=== PATIENT | female | born 1985 ===

== ENCOUNTER 2016-08-02 13:19 | Emergency (ER) | payer MEDICAID ==
[2016-08-02 13:32] VITALS: BP 127/74; PULSE 88; RESP 18; TEMP 98.4; O2SAT 100
--- NOTE | 2016-08-02 13:54 | ED PDOC ---
HPI: CCC, URI, Sore Throat Time Seen by Provider: 08/02/16 13:32 Chief Complaint (Nursing): Cough, Cold, Congestion Chief Complaint (Provider): seasonal allergies History Per: Patient History/Exam Limitations: no limitations Have you had recent travel within the past 21 days to any of the following countries: [place], [place], [place] or [place]?: No Past Medical History Vital Signs: Last Vital Signs Temp 98.4 F 08/02/16 13:29 Pulse 88 08/02/16 13:29 Resp 18 08/02/16 13:29 BP 127/74 08/02/16 13:29 Pulse Ox 100 08/02/16 13:54 - Medical History PMH: Pulmonary Embolism (2013) - Surgical History Surgical History: - Allergies Allergies/Adverse Reactions: Allergies Allergy/AdvReac Type Severity Reaction Status Date / Time No Known Allergies Allergy Verified 04/11/16 16:39 - ECG O2 Sat by Pulse Oximetry: 100
--- NOTE | 2016-08-02 14:46 | ED PDOC ---
HPI: General Adult Time Seen by Provider: 08/02/16 13:32 Chief Complaint (Nursing): Cough, Cold, Congestion Chief Complaint (Provider): seasonal allergies History Per: Patient History/Exam Limitations: no limitations Onset/Duration Of Symptoms: Days (x 2 weeks) Have you had recent travel within the past 21 days to any of the following countries: [place], [place], [place] or [place]?: No Additional Complaint(s): Ewelina Cloud is a 30 year old female, with no previous medical history, who presents to the ED with complaints of symptoms consistent with her seasonal allergies ongoing for 2 weeks. Patient reports symptoms include runny nose, itchy eyes and sore throat. Patient denies any fever or chills. Patient reports to taking claritin to alleviate symptoms with minimal relief. She reports being unable to see her PMD because there were no available appointments. PMD: none provided Past Medical History Reviewed: Historical Data, Nursing Documentation, Vital Signs Vital Signs: Last Vital Signs Temp 98.4 F 08/02/16 13:29 Pulse 88 08/02/16 13:29 Resp 18 08/02/16 13:29 BP 127/74 08/02/16 13:29 Pulse Ox 100 08/02/16 14:55 - Medical History PMH: Pulmonary Embolism (2013) - Surgical History Surgical History: - Family History Family History: States: Unknown Family Hx - Home Medications Home Medications: Ambulatory Orders Medication Instructions Recorded Fexofenadine/Pseudoephedrine 1 each PO BID PRN #12 tab.er.12h 08/02/16 [Vida-D 12 Hour Tablet] - Allergies Allergies/Adverse Reactions: Allergies Allergy/AdvReac Type Severity Reaction Status Date / Time No Known Allergies Allergy Verified 04/11/16 16:39 Review of Systems ROS Statement: Except As Marked, All Systems Reviewed And Found Negative Constitutional: Negative for: Fever, Chills Eyes: Positive for: Other (itchy eyes ). Negative for: Vision Change ENT: Positive for: Other (runny nose ) Physical Exam - Reviewed Nursing Documentation Reviewed: Yes Vital Signs Reviewed: Yes - Physical Exam Appears: Positive for: Well, Non-toxic, No Acute Distress Head Exam: Positive for: ATRAUMATIC, NORMAL INSPECTION, NORMOCEPHALIC Skin: Positive for: Normal Color, Warm, Dry Eye Exam: Positive for: Normal appearance, EOMI, PERRL. Negative for: Periorbital swelling, Conjunctival injection ENT: Positive for: Pharyngeal Erythema. Negative for: Tonsillar Exudate Cardiovascular/Chest: Positive for: Regular Rate, Rhythm Respiratory: Positive for: Normal Breath Sounds. Negative for: Decreased Breath Sounds, Accessory Muscle Use, Respiratory Distress Gastrointestinal/Abdominal: Positive for: Normal Exam, Bowel Sounds, Soft Neurologic/Psych: Positive for: Alert, Oriented - ECG O2 Sat by Pulse Oximetry: 100 (RA) Pulse Ox Interpretation: Normal Medical Decision Making Medical Decision Making: Initial Impression: Seasonal Allergies Initial Plan: * urine * prednisone * throat culture * rapid strep * reevaluation Scribe Attestation: Documented by Noelle Rojo, acting as a scribe for Cece Ray PA-C. Provider Scribe Attestation: All medical record entries made by the Scribe were at my direction and personally dictated by me. I have reviewed the chart and agree that the record accurately reflects my personal performance of the history, physical exam, medical decision making, and the department course for this patient. I have also personally directed, reviewed, and agree with the discharge instructions and disposition. Disposition - Clinical Impression Clinical Impression: Seasonal allergies - Patient ED Disposition Is Patient to be Admitted: No Doctor Will See Patient In The: Office Counseled Patient/Family Regarding: Studies Performed, Diagnosis, Need For Followup, Rx Given - Disposition Disposition: Routine/Home Disposition Time: 14:47 Condition: FAIR Prescriptions: Fexofenadine/Pseudoephedrine [Vida-D 12 Hour Tablet] 1 each PO BID PRN #12 tab.er.12h PRN Reason: Cough And Congestion Instructions: Allergic Rhinitis (ED)
== END 2016-08-02 14:58 | disposition home or self-care (01) ==
LOC: H.ER 13:19
DX: J30.2 Other seasonal allergic rhinitis (principal); Z86.711 Personal history of pulmonary embolism

== ENCOUNTER 2016-11-19 09:27 | Emergency (ER) | payer MEDICAID ==
[2016-11-19 09:31] VITALS: BMI 32.2
[2016-11-19 09:33] VITALS: BP 121/71; PULSE 83; RESP 17; TEMP 98.2; O2SAT 98
--- NOTE | 2016-11-19 10:58 | ED PDOC ---
HPI: Skin/Bite Injury Time Seen by Provider: 11/19/16 10:10 Chief Complaint (Nursing): Abnormal Skin Integrity Chief Complaint (Provider): Abscess History Per: Patient Additional Complaint(s): 30 yo female, PMH of PE , presents to ED for evaluation of an potential abscess , worsening in the last week. Pt notes small pimple developed to left inner thigh x5 days, getting progressively larger each day. Today at 5 am, Pt awoke due to a horrible smell and reports that the abscess had "popped" and she had puss on her sheets and the whole room smelled. Past Medical History Reviewed: Nursing Documentation, Vital Signs Vital Signs: Last Vital Signs Temp 98.2 F 11/19/16 09:31 Pulse 83 11/19/16 09:31 Resp 17 11/19/16 09:31 BP 121/71 11/19/16 09:31 Pulse Ox 98 11/19/16 09:31 - Medical History PMH: Pulmonary Embolism (2013) - Surgical History Surgical History: - Family History Family History: States: Unknown Family Hx - Home Medications Home Medications: Ambulatory Orders Medication Instructions Recorded Fexofenadine/Pseudoephedrine 1 each PO BID PRN #12 tab.er.12h 08/02/16 [Vida-D 12 Hour Tablet] - Allergies Allergies/Adverse Reactions: Allergies Allergy/AdvReac Type Severity Reaction Status Date / Time No Known Allergies Allergy Verified 11/19/16 10:00 Review of Systems ROS Statement: Except As Marked, All Systems Reviewed And Found Negative Skin: Positive for: Other (abscess) Physical Exam - Reviewed Nursing Documentation Reviewed: Yes Vital Signs Reviewed: Yes - Physical Exam Appears: Positive for: Well, Non-toxic, No Acute Distress Head Exam: Positive for: ATRAUMATIC, NORMAL INSPECTION, NORMOCEPHALIC Skin: Positive for: Normal Color, Warm, DRY Eye Exam: Positive for: EOMI, Normal appearance, PERRL ENT: Positive for: Normal ENT Inspection Neck: Positive for: Normal, Painless ROM Cardiovascular/Chest: Positive for: Regular Rate, Rhythm Respiratory: Positive for: CNT, Normal Breath Sounds Gastrointestinal/Abdominal: Positive for: Normal Exam, Bowel Sounds, Soft Back: Positive for: Normal Inspection Extremity: Positive for: Normal ROM Neurologic/Psych: Positive for: Alert, Oriented Comments: Left inguinal crease: (+) tender, non fluctuant, indurated, erythematous drainage mass ~ 2 cm - ECG O2 Sat by Pulse Oximetry: 98 Medical Decision Making Medical Decision Making: No further incision and drainage needed at this time. Pt started on Clinda and Motrin PO Advised warm compresses, no shaving! and to continue antibiotics as directed Wound check in 48 hours. Disposition - Clinical Impression Clinical Impression: Abscess - Patient ED Disposition Is Patient to be Admitted: No - Disposition Disposition: Routine/Home Disposition Time: 11:03 Condition: STABLE Forms: [employer] ([place]) - POA Present On Arrival: None
== END 2016-11-19 11:47 | disposition home or self-care (01) ==
LOC: H.ER 09:27
DX: L02.416 Cutaneous abscess of left lower limb (principal)

== ENCOUNTER 2017-01-20 14:30 | Observation (INO) | payer MEDICAID ==
[2017-01-20 14:30] VITALS: BMI 32.2
[2017-01-20] MEDS: Sodium Chloride 0.9% 1,000 ML IV SCH ×2 (15:37→22:07)
[2017-01-20 15:51] LABS: BASO # 0.1 K/uL (0.0-0.2); BASO % 0.7 % (0.0-2.0); EOS # 0.6 K/uL (0.0-0.7); EOS % 7.1 % (0.0-4.0); HEMATOCRIT 38.3 % (34.0-47.0); LYMPH # 2.8 K/uL (1.0-4.3); LYMPH % 34.4 % (20.0-40.0); MEAN CELL VOLUME 91.3 fl (81.0-99.0); MEAN CORPUSCULAR HEMOGLOBIN 31.7 pg (27.0-31.0); MEAN CORPUSCULAR HGB CONC 34.8 g/dL (33.0-37.0); MEAN PLATELET VOLUME 9.4 fl (7.2-11.7); MONO # 1.3 K/uL (0.0-0.8); MONO % 15.7 % (0.0-10.0); NEUT # 3.4 K/uL (1.8-7.0); NEUT % 42.1 % (50.0-75.0); NRBC % 0.2 % (0.0-0.0); RED CELL DISTRIBUTION WIDTH 12.9 % (11.5-14.5)
--- NOTE | 2017-01-20 16:01 | RAD ---
HISTORY: weakness COMPARISON: No prior. FINDINGS: LUNGS: No active pulmonary disease. PLEURA: No significant pleural effusion identified, no pneumothorax apparent. CARDIOVASCULAR: Normal. OSSEOUS STRUCTURES: No significant abnormalities. VISUALIZED UPPER ABDOMEN: Normal. OTHER FINDINGS: None. IMPRESSION: No active disease.
[2017-01-20 16:11] LABS: ALB/GLOB RATIO 1.2 (1.0-2.1); ALKALINE PHOSPHATASE 81 U/L (38-126); ALT/SGPT 70 U/L (9-52); AST/SGOT 42 U/L (14-36); BILIRUBIN,TOTAL 0.4 mg/dl (0.2-1.3); BLOOD UREA NITROGEN 9 mg/dl (7-17); CALCIUM 9.5 mg/dL (8.4-10.2); CARBON DIOXIDE 24 mmol/L (22-30); CHLORIDE 105 mmol/L (98-107); CHOLESTEROL 225 mg/dL (0-199); GFR AFRICAN-AMERICAN > 60; GLUCOSE,RANDOM 85 mg/dL (65-105); SODIUM 140 mmol/l (132-148); TOTAL PROTEIN 8.7 G/DL (6.3-8.2)
[2017-01-20 16:16] LABS: POTASSIUM 4.3 MMOL/L (3.6-5.0)
[2017-01-20 16:41] LABS: PARTIAL THROMBOPLASTIN TIME 22.3 Seconds (25.6-37.1)
--- NOTE | 2017-01-20 16:41 | CT ---
PROCEDURE: CT HEAD WITHOUT CONTRAST. HISTORY: L sided weakness COMPARISON: None available. TECHNIQUE: Axial computed tomography images were obtained through the head/brain without intravenous contrast. Radiation dose: Total exam DLP = 1217.03 mGy-cm. This CT exam was performed using one or more of the following dose reduction techniques: Automated exposure control, adjustment of the mA and/or kV according to patient size, and/or use of iterative reconstruction technique. FINDINGS: HEMORRHAGE: No intracranial hemorrhage. BRAIN: No mass effect or edema. The jarrell-white matter differentiation appears intact. Storm cisterna magna versus arachnoid cyst. VENTRICLES: No hydrocephalus. CALVARIUM: Unremarkable. PARANASAL SINUSES: Unremarkable as visualized. No significant inflammatory changes. MASTOID AIR CELLS: Unremarkable as visualized. No inflammatory changes. OTHER FINDINGS: None. IMPRESSION: No acute intracranial pathology identified. Storm cisterna magna versus arachnoid cyst.
--- NOTE | 2017-01-20 19:32 | ED PDOC ---
HPI:STROKE - Time Time: 15:05 - Historian Historian: Patient - Chief Complaint Chief Complaint: Weakness, Numbness - Onset Date: 01/20/17 Time: 10:00 (approx) - Timing Timing: Currently Symptomatic - Location Locate left: Face - Radiation Radiation: Head - Severity of pain Maximum severity:: Moderate Severity Current: Moderate - Quality of Pain Quality of Pain:: Pressure - Exacerbated by Exacerbated by:: Nothing - Relieved by Relieved by:: Nothing - TPA Positive for Contraindication: Yes Reason tPA is not being Administered: NIHSS <4, symptoms ongoing >3.5 hours - Notes: Notes:: 31yo female hx PE (provoked by contraceptives) presents with sudden onset left arm weakness 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 Also notes a posterior headache ("heaviness") with mild dizziness. Denies chest pain, SOB, lower extremity weakness, difficulty speaking or change in vision. NIHSS Stroke Scale - Date/Time Evaluation Performed Date Performed: 01/20/17 Time Performed: 15:10 When Was NIHSS Performed: Baseline - How Severe is the Stroke Level of Consciousness: 0=Alert LOC to Questions: 0=Both comments correct LOC to commands: 0=Obeys both correctly Best Gaze: 0=Normal Visual: 0=No visual loss Facial: 0=Normal Motor Arm - Left: 0=No drift Motor Arm - Right: 0=No drift Motor Leg - Left: 0=No drift Motor Leg - Right: 0=No drift Limb Ataxia: 0=Absent Sensory: 1=Mild to moderate loss Best Language: 0=No aphasia Dysarthia: 0=Normal articulation Extinction & Inattention (Neglect): 0=Normal, no object Score: 1 rTPA Inclusion/Exclusion - Refusal of Treatment Patient Refused Treatment: No - Inclusion Criteria for Altepase Patient is 18 years or Older: Yes The Clinical Diagnosis of Ischemic Stroke That is Causing a Potentially Disabling Neurological Deficit: Yes Time of Onset is Well Established to be Less Than 270 Minute Before Treatment Would Begin: No Risk/Benefit Discussed With Patient/Family Member Present: Yes - Warning to TPA With Conditions Following Conditions Weighed Against Anticipated Benefit: Yes Condition: Stroke Serevity Too Mild Past Medical History Reviewed: Historical Data, Nursing Documentation, Vital Signs Vital Signs: Last Vital Signs Temp 98.6 F 01/20/17 14:43 Pulse 77 01/20/17 14:43 Resp 16 01/20/17 14:43 BP 142/93 H 01/20/17 14:43 Pulse Ox 98 01/20/17 14:43 - Medical History PMH: Pulmonary Embolism (2014) - Surgical History Surgical History: - Family History Family History: States: Unknown Family Hx - Social History Current smoker - smoking cessation education provided: No - Home Medications Home Medications: Ambulatory Orders Medication Instructions Recorded No Known Home Med 01/20/17 - Allergies Allergies/Adverse Reactions: Allergies Allergy/AdvReac Type Severity Reaction Status Date / Time No Known Allergies Allergy Verified 11/19/16 10:00 Review of Systems ROS Statement: Except As Marked, All Systems Reviewed And Found Negative Constitutional: Negative for: Fever, Chills ENT: Negative for: Nose Discharge, Throat Pain Cardiovascular: Negative for: Chest Pain, Palpitations Respiratory: Negative for: Cough, Shortness of Breath Gastrointestinal: Negative for: Nausea, Vomiting Genitourinary Female: Negative for: Dysuria, Frequency Musculoskeletal: Negative for: Neck Pain, Shoulder Pain Skin: Negative for: Rash, Lesions, Jaundice Neurological: Positive for: Weakness, Numbness, Headache, Dizziness. Negative for: Incoordination, Change in Speech, Confusion, Seizures, Altered Mental Status Psych: Negative for: Anxiety, Depression Physical Exam - Reviewed Nursing Documentation Reviewed: Yes Vital Signs Reviewed: Yes - Physical Exam Appears: Positive for: Well, Non-toxic, No Acute Distress Head Exam: Positive for: ATRAUMATIC, NORMAL INSPECTION, NORMOCEPHALIC Skin: Positive for: Normal Color, Warm, DRY Eye Exam: Positive for: EOMI, Normal appearance, PERRL ENT: Positive for: Normal ENT Inspection Neck: Positive for: Normal, Painless ROM Cardiovascular/Chest: Positive for: Regular Rate, Rhythm Respiratory: Positive for: CNT, Normal Breath Sounds Gastrointestinal/Abdominal: Positive for: Normal Exam, Bowel Sounds, Soft Back: Positive for: Normal Inspection Extremity: Positive for: Normal ROM Neurologic/Psych: Positive for: Alert, Oriented, Motor/Sensory Deficits (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 Negative for: Gait, Aphasia, Facial Droop - Laboratory Results Result Diagrams: 01/20/17 15:46 01/20/17 15:46 - ECG O2 Sat by Pulse Oximetry: 98 Medical Decision Making Medical Decision Making: workup for cerebral ischemia initiated given hx PE possible hypercoagulable syndrome NIHSS <4 CT brain report reviewed, Accession No. : [id number] Patient Name / ID : FREDRICK MUNOZ / [id number] Exam Date : 01/20/2017 16:14:47 ( Approved ) Study Comment : Sex / Age : F / 31Y Creator : Evelin Montes MD Dictator : Evelin Montes MD Counter Cutter : Plywood And Veneer Repairer : Evelin Montes MD Approver2 : Report Date : 01/20/2017 16:39:26 My Comment : PROCEDURE: CT HEAD WITHOUT CONTRAST. HISTORY: L sided weakness COMPARISON: None available. TECHNIQUE: Axial computed tomography images were obtained through the head/brain without intravenous contrast. Radiation dose: Total exam DLP = 1217.03 mGy-cm. This CT exam was performed using one or more of the following dose reduction techniques: Automated exposure control, adjustment of the mA and/or kV according to patient size, and/or use of iterative reconstruction technique. FINDINGS: HEMORRHAGE: No intracranial hemorrhage. BRAIN: No mass effect or edema. The jarrell-white matter differentiation appears intact. Storm cisterna magna versus arachnoid cyst. VENTRICLES: No hydrocephalus. CALVARIUM: Unremarkable. PARANASAL SINUSES: Unremarkable as visualized. No significant inflammatory changes. MASTOID AIR CELLS: Unremarkable as visualized. No inflammatory changes. OTHER FINDINGS: None. IMPRESSION: No acute intracranial pathology identified. Storm cisterna magna versus arachnoid cyst. ASA 325mg ordered On re-eval strength improved L arm and hand, Discussed w Dr Clifford neuro occupational health nurse manager who saw patient in ED and advised hypercoagulable workup, admit. Admit hospitalist Dr Jack hughes ([facility]) Disposition - Clinical Impression Clinical Impression: TIA (transient ischemic attack) - Patient ED Disposition Is Patient to be Admitted: Yes Counseled Patient/Family Regarding: Studies Performed, Diagnosis - Disposition Disposition: Transfer of Care Disposition Time: 16:45 Condition: FAIR
--- NOTE | 2017-01-20 20:17 | CP.PCM.HP ---
History of Present Illness - History of Present Illness History of Present Illness: CC: LUE/LLE weakness HPI: This is a 31 y/o female with prior history of PE (provoked by contraceptive use) who presents today with sudden onset of LUE and LLE weakness and tingling. She also noticed an occipital RILEY and some dizziness. Patient was in class at the time the symptoms started, and the symptoms had largely resolved by the time she came into the ER. She states that in the recent past, she has had some recurrent episodes of LUE/LLE weakness like this, but not as intense. Patient denies CP/SOB, denies f/c/n/v/d. ROS: 14 systems reviewed, negative other than HPI MHx: PE in the past SHx: None Allergies: NKDA Medications: None at this time Family Hx: No history of DVT, PE, CVA or other relevant conditions in family Social Hx: Lives with family, no tobacco, occ EtOH, no drugs Present on Admission - Present on Admission Any Indicators Present on Admission: No Past Patient History - Past Social History Smoking Status: Never Smoked - PULMONARY Hx Pulmonary Embolism: Yes (2014) - PSYCHIATRIC Hx Substance Use: No - SURGICAL HISTORY Hx Section: Yes (x2) Other/Comment: ovarian cyst removed, lipoma removed from back - ANESTHESIA Hx Anesthesia: Yes Hx Anesthesia Reactions: No Meds Allergies/Adverse Reactions: Allergies Allergy/AdvReac Type Severity Reaction Status Date / Time No Known Allergies Allergy Verified 11/19/16 10:00 Physical Exam - Constitutional Appears: No Acute Distress - Head Exam Head Exam: ATRAUMATIC, NORMOCEPHALIC - Eye Exam Eye Exam: EOMI, PERRL - ENT Exam ENT Exam: Mucous Membranes Moist - Neck Exam Neck exam: Positive for: Full Rom - Respiratory Exam Respiratory Exam: Clear to Auscultation Bilateral, NORMAL BREATHING PATTERN - Cardiovascular Exam Cardiovascular Exam: REGULAR RHYTHM, +S1, +S2 Additional comments: no m/g/r - GI/Abdominal Exam GI & Abdominal Exam: Normal Bowel Sounds, Soft - Extremities Exam Extremities exam: Positive for: full ROM Additional comments: LUE and LLE with 5/5 strength, but subtle weakness compared to R - Neurological Exam Neurological exam: Alert, CN II-XII Intact, Oriented x3 - Psychiatric Exam Psychiatric exam: Normal Affect, Normal Mood - Skin Skin Exam: Dry, Warm Results - Vital Signs Recent Vital Signs: Last Vital Signs Temp 98.6 F 01/20/17 14:43 Pulse 77 01/20/17 14:43 Resp 16 01/20/17 14:43 BP 142/93 H 01/20/17 14:43 Pulse Ox 98 01/20/17 19:36 - Labs Result Diagrams: 01/20/17 15:46 01/20/17 15:46 Labs: Laboratory Results - last 24 hr 01/20/17 01/20/17 01/20/17 15:46 15:46 15:46 WBC 8.0 RBC 4.19 Hgb 13.3 Hct 38.3 MCV 91.3 MCH 31.7 H MCHC 34.8 RDW 12.9 Plt Count 313 MPV 9.4 Neut % (Auto) 42.1 L Lymph % (Auto) 34.4 [place] % (Auto) 15.7 H Eos % (Auto) 7.1 H Baso % (Auto) 0.7 Neut # 3.4 Lymph # 2.8 [place] # 1.3 H Eos # 0.6 Baso # 0.1 PT 11.3 INR 1.0 APTT 22.3 L Sodium 140 Potassium 4.3 Chloride 105 Carbon Dioxide 24 Anion Gap 15 BUN 9 Creatinine 0.6 L Est GFR ( Amer) > 60 Est GFR (Non-Af Amer) > 60 Random Glucose 85 Calcium 9.5 Total Bilirubin 0.4 AST 42 H ALT 70 H Alkaline Phosphatase 81 Troponin I < 0.0120 Total Protein 8.7 H Albumin 4.7 Globulin 4.0 H Albumin/Globulin Ratio 1.2 Triglycerides 108 Cholesterol 225 H LDL Cholesterol Direct 143 H HDL Cholesterol 53 Blood Type Antibody Screen BBK History Checked 01/20/17 15:46 WBC RBC Hgb Hct MCV MCH MCHC RDW Plt Count MPV Neut % (Auto) Lymph % (Auto) [place] % (Auto) Eos % (Auto) Baso % (Auto) Neut # Lymph # [place] # Eos # Baso # PT INR APTT Sodium Potassium Chloride Carbon Dioxide Anion Gap BUN Creatinine Est GFR ( Amer) Est GFR (Non-Af Amer) Random Glucose Calcium Total Bilirubin AST ALT Alkaline Phosphatase Troponin I Total Protein Albumin Globulin Albumin/Globulin Ratio Triglycerides Cholesterol LDL Cholesterol Direct HDL Cholesterol Blood Type B POSITIVE Antibody Screen Negative BBK History Checked No verified bt - EKG Data EKG Interpreted by: Myself EKG shows normal: Sinus rhythm Rate: Normal - Imaging and Cardiology CT scan - head Status: Image reviewed by me, Report reviewed by me (sujatha cysterna magna vs cyst ) Chest x-ray Status: Image reviewed by me, Report reviewed by me (no acute findings) Assessment & Plan (1) TIA (transient ischemic attack) Assessment and Plan: 31 y/o female with prior provoked PE who comes in with Sx of R sided TIA/L sided weakness. -Tele -See/Eval by neuro -Serial trops -hypercoag tests as ordered per neurology -A1C, lipid levels as per neurology -MRI/A, Echo, EEG, carotids as per neuro -Accucheck ACHS -ASA, Statin as ordered per neuro -Lovenox SQ for DVT PPx Status: Acute (2) DVT prophylaxis Status: Acute
[2017-01-21] MEDS: Sodium Chloride 0.9% 1,000 ML IV SCH (05:53)
[2017-01-21 06:10] LABS: HEMATOCRIT 38.3 % (34.0-47.0); MEAN CORPUSCULAR HGB CONC 33.3 g/dL (33.0-37.0); RED CELL DISTRIBUTION WIDTH 12.6 % (11.5-14.5); WHITE BLOOD COUNT 7.7 K/uL (4.8-10.8)
[2017-01-21 06:13] LABS: HOMOCYSTEINE 6.1 umol/L (<10.4)
[2017-01-21 07:33] LABS: BLOOD UREA NITROGEN 11 mg/dl (7-17); CALCIUM 8.7 mg/dL (8.4-10.2); CARBON DIOXIDE 23 mmol/L (22-30); CHLORIDE 108 mmol/L (98-107); GFR AFRICAN-AMERICAN > 60; GLUCOSE,RANDOM 87 mg/dL (65-105); SODIUM 143 mmol/l (132-148)
--- NOTE | 2017-01-21 07:36 | CARD ---
APPROVED REPORT EKG Measurement Heart [id number] <Conclusion> Normal sinus rhythm Normal ECG
--- NOTE | 2017-01-21 08:59 | CON ---
DATE: ROOM: Bed 18 in the emergency room. REASON FOR CONSULTATION: Possible transient ischemic attack. CHIEF COMPLAINT: The patient came to the emergency room with history of some foggy sensation of her occipital region and recurrent episodes of dizziness and left arm and leg discomfort. From a neurological point of view, I was called in to evaluate her for further management. HISTORY OF PRESENT ILLNESS: is a 31-year-old college student, presenting with recurrent episodes of lightheadedness whenever she bent her head down to or lift it up, which lasted for about a second, which she never had before. This has been happening for the last 1 month. She also admitting some left arm and leg tingling sensation, which also is happening independently and not related to her dizziness, not involving her face. This has been going on for about 1 month also, which lasted longer than her dizziness. These 2 episodes are not associating with headache, visual or bulbar dysfunction, no focal weakness, no involuntary movements. PAST MEDICAL HISTORY: She had a pulmonary embolism many years ago in relation to her contraceptives, has been on Xarelto for a while, and Xarelto was discontinued. No history of migraine. PERSONAL HISTORY: No history of smoking or alcohol use. ALLERGIES: NO KNOWN ALLERGIES. MEDICATIONS: None. REVIEW OF SYSTEMS: A 16-point system has been reviewed. From neuro, occipital headache with left-sided tingling and numbness sensation. PHYSICAL EXAMINATION: VITAL SIGNS: Blood pressure 142/93, mean arterial pressure of 109, respiratory rate 16, and temperature is afebrile. NECK: Supple. No carotid bruits. HEART: Sounds are regular. CHEST: Fair air entry. EXTREMITIES: No edema or leg swelling. NEUROLOGIC EXAMINATION: Mental status examination; she is awake, alert, and oriented to person, place and time. Speech is clear. Naming, repetition, fluency, comprehension are all within normal. Cranial nerve examination; visual jacques are intact. Pupils are reactive to light. Extraocular movements are normal. No nystagmus. No facial sensory deficits. No facial asymmetry. Hearing is normal. Tongue is midline. Good gag. Motor examination; outstretched hand with eyes closed, no drifting noted. Power is symmetric on either side. Deep tendon reflexes, biceps, brachialis, triceps 1+; both knees are trace; both ankles are trace; plantars are downgoing. Sensory examination; no sensory deficits. WORKUP: CT of the head reviewed by me showed cisterna magna on the right cerebellar region without any mass effect. BLOOD WORKUP: WBC 8.0, hemoglobin 13.3, hematocrit 38.3, and platelet 313. PT 11.3, INR 1.20, PTT 22.3. AST 42, ALT 70, cholesterol 225, LDL 143, HDL 53. CONCLUSION: . has been presenting with recurrent episodes of lightheadedness with recurrent episodes of left arm and leg sensory deficit, consistent with either focal seizures or a cervical pathology. Considering the abnormal CAT scan, the patient may have Arnold-Chiari malformation related to her cisterna magna. RECOMMENDATIONS: 1. The patient should be kept for next 24-hour observation. In the meantime, I would like her to have MRI of the brain and MRI of the cervical spine. 2. Hypercoagulable workup should be done. 3. Discontinue aspirin. I will put her on Plavix including a statin for her dyslipidemia. The patient also shows some essential hypertension that may be benefitted with either NIRAV inhibitors or angiotensin receptor blockers. 4. The patient should also get EEG during the hospitalization. The patient will be followed closely with you. Jonathan Clifford MD
[2017-01-21] MEDS ORDERED: Enoxaparin 40 mg Syringe SC SCH (09:00)
--- NOTE | 2017-01-21 09:58 | US ---
PROCEDURE: Duplex ultrasound of the carotid and vertebral arteries. HISTORY: Assess stenosis COMPARISON: None available. TECHNIQUE: Grayscale and duplex Doppler evaluation of the cervical carotid and vertebral arteries were performed. The common carotid, carotid bifurcations and cervical ICA and proximal ECA were evaluated. The vertebral arteries were evaluated for gross patency and direction. FINDINGS: There is intimal thickening in both internal carotid arteries. RIGHT CAROTID ARTERIES: Common Carotid Artery: Normal. Maximal flow velocity of 115.6 cm/s. Carotid Bifurcation: Normal. Internal Carotid Artery:Normal. Maximal flow velocity of 104.8 cm/s. External Carotid Artery (proximal branches): Normal. Maximal flow velocity of 80.7 cm/s. ICA/CCA Ratio: 0.9 LEFT CAROTID ARTERIES: Common Carotid Artery: Normal. Maximal flow velocity of 114.0 cm/s. Carotid Bifurcation: Normal. Internal Carotid Artery:Normal. Maximal flow velocity of 101.5 cm/s. External Carotid Artery (proximal branches): Normal. Maximal flow velocity of 57.0 cm/s. ICA/CCA Ratio: 0.9 VERTEBRAL ARTERIES: Right Vertebral Artery: Patent. Antegrade flow. Left Vertebral Artery: Patent. Antegrade flow. OTHER FINDINGS: None. IMPRESSION: No hemodynamically significant stenosis.
--- NOTE | 2017-01-21 11:45 | CARD ---
APPROVED REPORT EXAM: Two-dimensional and M-mode echocardiogram with Doppler and color Doppler. Other Information Quality : GoodRhythm : NSR INDICATION CVA/TIA Echo Enhancing Agent Indication: Rule Out Septal Defect Agent/Amount Used: Agitated Saline 2D DIMENSIONS IVSd0.91 (0.7-1.1cm)LVDd4.52 (3.9-5.9cm) LVOT Diameter2.24 (1.8-2.4cm)PWd0.80 (0.7-1.1cm) IVSs1.36 (0.8-1.2cm)LVDs2.93 (2.5-4.0cm) FS (%) 35.1 %PWs1.49 (0.8-1.2cm) M-Mode DIMENSIONS Left Atrium (MM)3.45 (2.5-4.0cm)IVSd0.80 (0.7-1.1cm) Aortic Root2.99 (2.2-3.7cm)LVDd4.63 (4.0-5.6cm) Aortic Cusp Exc.2.21 (1.5-2.0cm)PWd0.77 (0.7-1.1cm) IVSs1.29 cmFS (%) 36 % LVDs2.96 (2.0-3.8cm)PWs1.31 cm Mitral Valve MV E Izvzlbbv75.9cm/sMV DECEL [id number] A Umxsbbop81.5cm/s MV [id number]/A ratio2.0MVA (PHT)4.16cm2 TDI Lateral E' Peak V16.54cm/sMedial E' Peak V10.76cm/sE/Lateral E'4.6 E/Medial E'7.1 Pulmonary Valve PV Peak Kaahsrgc83.6cm/s LEFT VENTRICLE The left ventricle is normal size. There is normal left ventricular wall thickness. The left ventricular function is normal. The left ventricular ejection fraction is within the normal range. The Ejection Fraction is 60-65%. There is normal LV segmental wall motion. The left ventricular diastolic function is normal. No left ventricle thrombus noted on this study. There is no mass noted in the left ventricle. RIGHT VENTRICLE The right ventricle is normal size. There is normal right ventricular wall thickness. The right ventricular systolic function is normal. ATRIA The left atrium size is normal. The right atrium size is normal. The interatrial septum is intact with no evidence for an atrial septal defect. AORTIC VALVE The aortic valve is normal in structure and function. No aortic regurgitation is present. There is no aortic valvular stenosis. There is no aortic valvular vegetation. MITRAL VALVE The mitral valve is normal in structure and function. There is no evidence of mitral valve prolapse. There is no mitral valve stenosis. There is no mitral valve regurgitation noted. TRICUSPID VALVE The tricuspid valve is normal in structure and function. There is no tricuspid valve regurgitation noted. There is no tricuspid valve prolapse or vegetation. There is no tricuspid valve stenosis. PULMONIC VALVE The pulmonary valve is normal in structure and function. There is no pulmonic valvular regurgitation. There is no pulmonic valvular stenosis. GREAT VESSELS The aortic root is normal in size. The IVC is normal in size and collapses >50% with inspiration. PERICARDIAL EFFUSION The pericardium appears normal. There is no pleural effusion. <Conclusion> The left ventricle is normal size. There is normal left ventricular wall thickness. The left ventricular function is normal. The left ventricular ejection fraction is within the normal range. The Ejection Fraction is 60-65%.
--- NOTE | 2017-01-21 13:39 | MRI ---
PROCEDURE: MRI BRAIN WITHOUT CONTRAST HISTORY: reed cleaner stroke COMPARISON: Noncontrast head CT from 01/20/2017 TECHNIQUE: Multiplanar, multisequence MR images of the brain were obtained without intravenous contrast enhancement. FINDINGS: HEMORRHAGE: None DWI: No evidence of an acute or early subacute infarction. BRAIN PARENCHYMA: Broderick-white matter differentiation is preserved. There is no territorial infarction or abnormal extra-axial fluid collection. There is an approximately 3.0 x 4.4 x 5.7 cm T1 and FLAIR hypointense and T2 hyperintense right retro cerebellar mass following CSF signal intensity on all pulse sequences with resultant mild mass effect on the right posterior cerebellar hemisphere. There is no definite communication with the 4th ventricle and there is displacement of the dural fold to the left. The vermis is normal in appearance. VENTRICLES: The ventricles are normal in size, shape and configuration. There is mild asymmetry in the size of the lateral ventricles, left larger than right, likely an anatomic variant. . CRANIUM: There is normal bone marrow signal pattern. ORBITS: Grossly unremarkable. PARANASAL SINUSES/MASTOIDS: There is mild mucosal thickening in the paranasal sinuses, worse in the left ethmoid air cells. VASCULAR SYSTEM: There are normal signal voids in the larger intracranial arteries. OTHER FINDINGS: None. IMPRESSION: 1. 3.0 x 4.4 x 5.7 cm CSF signal intensity right retro cerebellar mass with mild mass effect on the right posterior cerebellar hemisphere without vasogenic edema or midline shift is most compatible with an arachnoid cyst. 2. No acute intracranial abnormality. Specifically, no evidence of acute infarction.
--- NOTE | 2017-01-21 13:57 | CP.PCM.PN ---
<Jade Stanley - Last Filed: 01/21/17 14:34> Subjective - Date & Time of Evaluation Date of Evaluation: 01/21/17 Time of Evaluation: 13:56 - Subjective Subjective: 31 y/o female seen at bedside this afternoon for left sided neck and arm weakness and tingling with headache. Pt states that her headache has resolved but that she still feels a "heaviness" in the back of her neck. Pt admits to mild to moderate weakness and numbness extending from the back of the left side of her neck down her left arm. Pt also admits to tingling in the neck, left arm , and entirety of left leg from the hip down to the toes. Pt denies memory loss or loss of balance. Pt is AAOx3 and in NAD at time of visit. Pt denies F/C/N/V/ CP. Pt states she is not short of breath but occasionally feels a sense of fatigue when breathing. Pt admits that she has experienced intermittent weakness on the left side of her body over the past month but did not do anything about it because she thought that it was a muscular issue that would resolve. Pt denies any abdominal pain. Objective - Vital Signs/Intake and Output Vital Signs (last 24 hours): Temp Pulse Resp BP Pulse Ox 98.8 F 84 20 118/79 98 01/21/17 12:28 01/21/17 12:28 01/21/17 12:28 01/21/17 12:28 01/21/17 12:28 Intake and Output: 01/21/17 01/21/17 06:59 18:59 Intake Total 300 Balance 300 - Medications Medications: Current Medications Acetaminophen (Tylenol 325mg Tab) 650 mg PO Q6 PRN PRN Reason: Pain, Mild (1-3), headache Last Admin: 01/21/17 11:57 Dose: 650 mg Acetaminophen (Tylenol 325mg Tab) 650 mg PO Q6 PRN PRN Reason: Fever >100.4 F Atorvastatin Calcium (Lipitor) 10 mg PO HS LEILA Clopidogrel Bisulfate (Plavix) 75 mg PO DAILY LEILA Last Admin: 01/21/17 11:59 Dose: 75 mg Enoxaparin Sodium (Lovenox) 40 mg SC DAILY LEILA PRN Reason: Protocol Last Admin: 01/21/17 11:59 Dose: 40 mg Sodium Chloride (Sodium Chloride 0.9%) 1,000 mls @ 150 mls/hr IV .Q6H40M [facility] Last Admin: 01/21/17 05:53 Dose: 150 mls/hr Losartan Potassium (Cozaar) 25 mg PO DAILY [facility] Last Admin: 01/21/17 12:00 Dose: 25 mg - Labs Labs: 01/21/17 04:15 01/21/17 04:15 PT 11.3 Seconds (9.8-13.1) 01/20/17 15:46 INR 1.0 (0.9-1.2) 01/20/17 15:46 APTT 22.3 Seconds (25.6-37.1) L 01/20/17 15:46 - Constitutional Appears: Well, Non-toxic, No Acute Distress - Head Exam Head Exam: ATRAUMATIC, NORMOCEPHALIC - Eye Exam Eye Exam: EOMI, Normal appearance, PERRL Pupil Exam: NORMAL ACCOMODATION, PERRL - ENT Exam ENT Exam: Mucous Membranes Moist, Normal Exam - Neck Exam Neck Exam: Full ROM, Tenderness Additional comments: mild tenderness to posterolateral neck on left when pressure applied. Pt can put neck through full ROM. No swollen lymph nodes, no JVD. - Respiratory Exam Respiratory Exam: Clear to Ausculation Bilateral, NORMAL BREATHING PATTERN Additional comments: no wheezing, no rales - Cardiovascular Exam Cardiovascular Exam: REGULAR RHYTHM, +S1, +S2 Additional comments: no murmur, no gallop - GI/Abdominal Exam GI & Abdominal Exam: Soft, Normal Bowel Sounds - Rectal Exam Rectal Exam: Deferred - Extremities Exam Additional comments: LUE and LLE with 5/5 strength as compared to right. No evident weakness noted on manual muscle testing. No asymmetry noted in muscle strength. - Back Exam Back Exam: NORMAL INSPECTION - Neurological Exam Neurological Exam: Alert, Awake, Oriented x3 Neuro motor strength exam: Left Upper Extremity: 5, Right Upper Extremity: 5, Left Lower Extremity: 5, Right Lower Extremity: 5 - Psychiatric Exam Psychiatric exam: Normal Affect, Normal Mood - Skin Skin Exam: Intact, Normal Color Assessment and Plan (1) TIA (transient ischemic attack) Assessment & Plan: 31 y/o female with previously provoked PE who comes into hospital with symptoms of right sided TIA with left sided weakness 1) TIA (transient ischemic attack) -patient monitored in telemetry -Neuro on consult Dr. Clifford -Serial troponins negative -Hypercoag tests pending -HgA1C at 5.7 -EKG shows normal sinus rhythm -CT head: IMPRESSION: 1. No acute intracranial pathology identified 2. Storm cisterna magna vs. arachnoid cyst -Carotid artery U/S negative for any significant stenosis -Echo shows normal left ventricular wall thickness with normal EF 60-65% -Brain MRI: IMPRESSION: 1. 3.0 x 4.4 x 5.7 cm CSF signal intensity right retro cerebellar mass with mild mass effect on the right posterior cerebellar hemisphere without vasogenic edema or midline shift is most compatible with an arachnoid cyst 2. No acute intracranial abnormality. Specifically, no evidence of acute infarction -Cervical spine MRI: IMPRESSION: 1. No evidence of cerebellar tonsillar ectopia or Chiari 1 malformation. 2. Small central disc protrusion at C4-5. No neural foraminal or spinal canal stenosis -Neuro recommendations appreciated Status: Acute Status: Acute (2) Hyperlipidemia Assessment & Plan: -started on Lipitor 10mg PO daily Status: Acute (3) DVT prophylaxis Assessment & Plan: -continue Plavix and Lovenox Status: Acute (4) Essential hypertension Assessment & Plan: -continue Losartan 25mg PO daily Status: Acute <Karlie Kelly - Last Filed: 01/21/17 16:28> Objective - Vital Signs/Intake and Output Vital Signs (last 24 hours): Temp Pulse Resp BP Pulse Ox 98.8 F 84 20 118/79 98 01/21/17 13:00 01/21/17 13:00 01/21/17 13:00 01/21/17 13:00 01/21/17 13:00 Intake and Output: 01/21/17 01/21/17 06:59 18:59 Intake Total 300 300 Balance 300 300 - Medications Medications: Current Medications Acetaminophen (Tylenol 325mg Tab) 650 mg PO Q6 PRN PRN Reason: Pain, Mild (1-3), headache Last Admin: 01/21/17 11:57 Dose: 650 mg Acetaminophen (Tylenol 325mg Tab) 650 mg PO Q6 PRN PRN Reason: Fever >100.4 F Atorvastatin Calcium (Lipitor) 10 mg PO HS LEILA Clopidogrel Bisulfate (Plavix) 75 mg PO DAILY [facility] Last Admin: 01/21/17 11:59 Dose: 75 mg Enoxaparin Sodium (Lovenox) 40 mg SC DAILY [facility] PRN Reason: Protocol Last Admin: 01/21/17 11:59 Dose: 40 mg Sodium Chloride (Sodium Chloride 0.9%) 1,000 mls @ 150 mls/hr IV .Q6H40M [facility] Last Admin: 01/21/17 05:53 Dose: 150 mls/hr Losartan Potassium (Cozaar) 25 mg PO DAILY [facility] Last Admin: 01/21/17 12:00 Dose: 25 mg - Labs Labs: 01/21/17 04:15 01/21/17 04:15 PT 11.3 Seconds (9.8-13.1) 01/20/17 15:46 INR 1.0 (0.9-1.2) 01/20/17 15:46 APTT 22.3 Seconds (25.6-37.1) L 01/20/17 15:46 Attending/Attestation - Attestation I have personally seen and examined this patient.: Yes I have fully participated in the care of the patient.: Yes I have reviewed all pertinent clinical information, including history, physical exam and plan: Yes Notes (Text): MRI of Brain show Arachnoid Cyst on the Right - will discuss MRI result with Dr Clifford , cyst approx 4x5 cm , ? possible etiology of neuro symptoms. - Pt's symptoms resolved
--- NOTE | 2017-01-21 14:26 | MRI ---
PROCEDURE: MR CERVICAL SPINE WITHOUT CONTRAST HISTORY: Arnold chiari malformation COMPARISON: None available. TECHNIQUE: Multiecho multiplanar sequences were performed through the cervical spine without the use of intravenous contrast. FINDINGS: There is straightening of the cervical spine with loss of normal cervical lordosis. Vertebral alignment is normal. Vertebral height is maintained. There is no acute fracture or spondylolisthesis. Bone marrow signal is within normal limits. The cervical cord is normal in contour, caliber and has normal intrinsic signal. There is no evidence of cerebellar tonsillar ectopia or Chiari 1 malformation. C2-C3: No disc herniation, spinal canal stenosis or neural foraminal narrowing. C3-C4: No disc herniation, spinal canal stenosis or neural foraminal narrowing. C4-C5: Small central disc protrusion. No neural foraminal or spinal canal stenosis. C5-C6: No disc herniation, spinal canal stenosis or neural foraminal narrowing. C6-C7: No disc herniation, spinal canal stenosis or neural foraminal narrowing. C7-T1: No disc herniation, spinal canal stenosis or neural foraminal narrowing. OTHER FINDINGS: None. IMPRESSION: 1. No evidence of cerebellar tonsillar ectopia or Chiari 1 malformation. 2. Small central disc protrusion at C4-5. No neural foraminal or spinal canal stenosis.
--- NOTE | 2017-01-21 18:53 | CP.PCM.DIS ---
Provider - Provider Date of Admission: 01/20/17 19:26 Attending physician: Sunil Santiago MD Primary care physician: Dr Gay Consults: Neurology : Dr Clifford Time Spent in preparation of Discharge (in minutes): 40 Diagnosis - Discharge Diagnosis (1) TIA (transient ischemic attack) Status: Acute (2) Essential hypertension Status: Acute (3) Hyperlipidemia Status: Acute (4) Intracranial arachnoid cyst Status: Acute Hospital Course - Lab Results Lab Results: Most Recent Lab Values WBC 7.7 K/uL (4.8-10.8) 01/21/17 04:15 RBC 4.11 Mil/uL (3.80-5.20) 01/21/17 04:15 Hgb 12.7 g/dL (12.0-16.0) 01/21/17 04:15 Hct 38.3 % (34.0-47.0) 01/21/17 04:15 MCV 93.0 fl (81.0-99.0) 01/21/17 04:15 MCH 31.0 pg (27.0-31.0) 01/21/17 04:15 MCHC 33.3 g/dL (33.0-37.0) 01/21/17 04:15 RDW 12.6 % (11.5-14.5) 01/21/17 04:15 Plt Count 278 K/uL (130-400) 01/21/17 04:15 MPV 9.4 fl (7.2-11.7) 01/20/17 15:46 Neut % (Auto) 42.1 % (50.0-75.0) L 01/20/17 15:46 Lymph % (Auto) 34.4 % (20.0-40.0) 01/20/17 15:46 [place] % (Auto) 15.7 % (0.0-10.0) H 01/20/17 15:46 Eos % (Auto) 7.1 % (0.0-4.0) H 01/20/17 15:46 Baso % (Auto) 0.7 % (0.0-2.0) 01/20/17 15:46 Neut # 3.4 K/uL (1.8-7.0) 01/20/17 15:46 Lymph # 2.8 K/uL (1.0-4.3) 01/20/17 15:46 [place] # 1.3 K/uL (0.0-0.8) H 01/20/17 15:46 Eos # 0.6 K/uL (0.0-0.7) 01/20/17 15:46 Baso # 0.1 K/uL (0.0-0.2) 01/20/17 15:46 ESR 23 mm/hr (0-20) H 01/20/17 21:30 PT 11.3 Seconds (9.8-13.1) 01/20/17 15:46 INR 1.0 (0.9-1.2) 01/20/17 15:46 APTT 22.3 Seconds (25.6-37.1) L 01/20/17 15:46 Sodium 143 mmol/l (132-148) 01/21/17 04:15 Potassium 4.0 MMOL/L (3.6-5.0) 01/21/17 04:15 Chloride 108 mmol/L (98-107) H 01/21/17 04:15 Carbon Dioxide 23 mmol/L (22-30) 01/21/17 04:15 Anion Gap 16 (10-20) 01/21/17 04:15 BUN 11 mg/dl (7-17) 01/21/17 04:15 Creatinine 0.7 mg/dL (0.7-1.2) 01/21/17 04:15 Est GFR ( Amer) > 60 01/21/17 04:15 Est GFR (Non-Af Amer) > 60 01/21/17 04:15 POC Glucose (mg/dL) 110 mg/dL (65-110) 01/21/17 11:59 Random Glucose 87 mg/dL (65-105) 01/21/17 04:15 Hemoglobin A1c 5.7 % (4.2-6.5) 01/20/17 21:30 Calcium 8.7 mg/dL (8.4-10.2) 01/21/17 04:15 Total Bilirubin 0.4 mg/dl (0.2-1.3) 01/20/17 15:46 AST 42 U/L (14-36) H 01/20/17 15:46 ALT 70 U/L (9-52) H 01/20/17 15:46 Alkaline Phosphatase 81 U/L (38-126) 01/20/17 15:46 Troponin I < 0.0120 ng/mL (0.00-0.120) 01/21/17 12:00 C-React Prot High Sens 2.78 mg/L (1.00-3.00) 01/20/17 21:30 Total Protein 8.7 G/DL (6.3-8.2) H 01/20/17 15:46 Albumin 4.7 g/dL (3.5-5.0) 01/20/17 15:46 Globulin 4.0 gm/dL (2.2-3.9) H 01/20/17 15:46 Albumin/Globulin Ratio 1.2 (1.0-2.1) 01/20/17 15:46 Triglycerides 108 mg/DL (0-149) 01/20/17 15:46 Cholesterol 225 mg/dL (0-199) H 01/20/17 15:46 LDL Cholesterol Direct 143 mg/dL (0-129) H 01/20/17 15:46 HDL Cholesterol 53 MG/DL (30-70) 01/20/17 15:46 Homocysteine 6.1 umol/L ( <10.4) 01/20/17 21:30 TSH 3rd Generation 1.52 mIU/ML (0.46-4.68) 01/20/17 21:30 Thyroperoxidase Ab 39 IU/mL (<9) H 01/20/17 21:30 RPR Nonreactive (NONREACTIVE) 01/20/17 21:30 Blood Type B POSITIVE 01/20/17 15:46 Antibody Screen Negative 01/20/17 15:46 BBK History Checked No verified bt 01/20/17 15:46 - Hospital Course Hospital Course: 31 y/o lady with hx of PE ( provoked pt was on hormonal control ) , came in bec of left sidede numbness. (1) TIA (transient ischemic attack) 1) TIA (transient ischemic attack) -patient monitored in telemetry -Neuro on consult Dr. Clifford -Serial troponins negative -Hypercoag tests pending -HgA1C at 5.7 -EKG shows normal sinus rhythm -CT head: IMPRESSION: 1. No acute intracranial pathology identified 2. Storm cisterna magna vs. arachnoid cyst -Carotid artery U/S negative for any significant stenosis -Echo shows normal left ventricular wall thickness with normal EF 60-65% -Brain MRI: IMPRESSION: 1. 3.0 x 4.4 x 5.7 cm CSF signal intensity right retro cerebellar mass with mild mass effect on the right posterior cerebellar hemisphere without vasogenic edema or midline shift is most compatible with an arachnoid cyst 2. No acute intracranial abnormality. Specifically, no evidence of acute infarction -Cervical spine MRI: IMPRESSION: 1. No evidence of cerebellar tonsillar ectopia or Chiari 1 malformation. 2. Small central disc protrusion at C4-5. No neural foraminal or spinal canal stenosis Discussed case with Dr Clifford - aungnt may possibly be TIA vs Carpal Tunnel Syndrome, symptoms unlikely caused by the Arachnoid cyst seen on MRI. He rec to cont Plavix, statin and Losartan Pt's symptoms resolved (2) Hyperlipidemia -started on Lipitor 10mg PO daily (3) DVT prophylaxis Lovenox (4) Essential hypertension -continue Losartan 25mg PO daily 5. Arachnoid Cyst unlikely the etiology of pt's neuro sxs - ff up as outpt Discharge Exam - Head Exam Head Exam: ATRAUMATIC, NORMAL INSPECTION, NORMOCEPHALIC - Eye Exam Eye Exam: EOMI, Normal appearance, PERRL Pupil Exam: NORMAL ACCOMODATION - ENT Exam ENT Exam: Mucous Membranes Moist, Normal External Ear Exam - Neck Exam Neck exam: Full Rom - Respiratory Exam Respiratory Exam: NORMAL BREATHING PATTERN. absent: Respiratory Distress - Cardiovascular Exam Cardiovascular Exam: REGULAR RHYTHM, +S1, +S2 - GI/Abdominal Exam GI & Abdominal Exam: Normal Bowel Sounds, Soft. absent: Tenderness - Extremities Exam Extremities exam: full ROM, normal capillary refill, normal inspection, pedal pulses present - Back Exam Back exam: FULL ROM. absent: CVA tenderness (L), CVA tenderness (R), paraspinal tenderness, vertebral tenderness - Neurological Exam Neurological exam: Alert, CN II-XII Intact, Normal Gait, Oriented x3, Reflexes Normal - Psychiatric Exam Psychiatric exam: Normal Affect, Normal Mood - Skin Skin Exam: Dry, Normal Color, Warm Discharge Plan - Discharge Medications Prescriptions: Atorvastatin [Lipitor] 10 mg PO HS #30 tab Clopidogrel [Plavix] 75 mg PO DAILY #30 tab Losartan [Cozaar] 25 mg PO DAILY #30 tab - Follow Up Plan Condition: GOOD Disposition: HOME/ ROUTINE Additional Instructions: ff up with Dr Gay in 1 -2 wks, ff up pending lab result with him low cholesterol diet Referrals: Micah Gay MD [Family Provider] - Clinical Quality Measures - CQM - Stroke Antithrombotic Prescribed: Yes Anticoagulation Prescribed for Atrial Flutter, Atrial Fibrillation and History of:: Not Applicable Statin prescribed: Yes
[2017-01-21 20:22] VITALS: BP 113/78; PULSE 77; RESP 14; TEMP 98.7; O2SAT 99
--- NOTE | 2017-01-22 00:19 | PN ---
DATE: 01/21/2017 NEUROLOGIC PROBLEM: Possible transient ischemic attack. PHYSICAL EXAMINATION: VITAL SIGNS: Blood pressure 118/79, mean arterial pressure of 92, respiratory rate 16, temperature afebrile. NECK: Supple. Patient is asymptomatic, lying comfortably in the bed with headset. Examination is unchanged compared with my previous examination. All workup being done since yesterday including MRI of the brain and MRA of the neck being reviewed. Subarachnoid cyst over right posterior fossa noted. No Arnold Chiari malformation. Cervical spine also showed no evidence of cord involvement or herniation noted. Some disc bulge over C4-C5 region noted. LABORATORY DATA: Blood workup so far all negative. Electroencephalogram also showed normal electroencephalogram for the age. No paroxysmal activities. No focal slowing. Patient is advised to continue antiplatelets with statin and angiotensin receptor blockers. Patient's condition also discussed with attending. Patient is medically stable. Patient can be discharged and should have followup visit with me as outpatient because further workup for coagulable state is still pending, that can be followed as outpatient . Jonathan Clifford MD
[2017-01-22 21:56] LABS: B2 GLYCOPROTEIN I AB(IGA) <9 SAU (<=20); B2 GLYCOPROTEIN I AB(IGG) <9 SGU (<=20); B2 GLYCOPROTEIN I AB(IGM) <9 SMU (<=20)
[2017-01-22 22:10] LABS: CARDIOLIPIN AB (IGA) <11 APL (<=11)
--- NOTE | 2017-01-23 02:58 | EEG ---
DATE: 01/21/2017 This is a 16-channel electroencephalogram of awake and drowsy adult. During the study, photic stimulation was performed. Hyperventilation was not performed. The resting electroencephalogram consists of 20 to 30 microvolt decreased alpha activity seen at the parietal and occipital leads. Anteriorly, fast activity superimposed with 2 to 3 Hz delta activity was seen. The photic stimulation did not evoke driving response noted at 2 to 20 Hz. IMPRESSION: This is a normal electroencephalogram of awake and drowsy adult. During the study, neither electroencephalographic paroxysmal activities nor focal slowing noted. Jonathan Clifford MD
[2017-01-23 05:10] LABS: PHOSPHATIDYLSERINE AB IGA <20 U/mL (<20); PHOSPHATIDYLSERINE AB IGM <25 U/mL (<25)
== END 2017-01-21 20:00 | disposition home or self-care (01) ==
LOC: H.ER 14:30 → H.TEL 19:26
PROVIDERS: ADMIT Internal Medicine; ATTEND Internal Medicine
DX: G45.9 Transient cerebral ischemic attack, unspecified (principal); I10 Essential (primary) hypertension; E78.5 Hyperlipidemia, unspecified; M48.02 Spinal stenosis, cervical region; Z79.82 Long term (current) use of aspirin; Z86.711 Personal history of pulmonary embolism
CPT/HCPCS: 36415; 70450; 70551; 71010; 72141; 80048; 80053; 80061; 81025; 81240; 81291; 82948; 83036; 83090; 83520; 84443; 84484; 85025; 85027; 85303; 85306; 85610; 85651; 85730; 86140; 86146; 86147; 86148; 86376; 86592; 86850; 86900; 93005; 93306; 93880; 95816; 99284; G0378; J1650; J7040

== ENCOUNTER 2017-05-06 13:02 | Emergency (ER) | payer MEDICAID ==
[2017-05-06 13:16] VITALS: BMI 31.8
[2017-05-06 13:20] VITALS: BP 122/74; PULSE 77; RESP 16; TEMP 97.9; O2SAT 100
--- NOTE | 2017-05-06 15:33 | ED PDOC ---
HPI: CCC, URI, Sore Throat Time Seen by Provider: 05/06/17 13:35 Chief Complaint (Nursing): Chest Pain Chief Complaint (Provider): Flu-like illness History Per: Patient History/Exam Limitations: no limitations Onset/Duration Of Symptoms: Days (x1 week) Current Symptoms Are (Timing): Still Present Additional Complaint(s): 31 year old female with no significant past medical history, who presents to the ED complaining of dry cough associated with chills, malaise, fatigue, body aches, mild rhinorrhea, and sore throat x2 days. Patient states she is taking OTC medication and Motrin as needed. Denies any vomiting or diarrhea. Also denies recent travel, but positive sick contacts at home in mother and daughter. PMD: Dr. Dwyer Past Medical History Reviewed: Historical Data, Nursing Documentation, Vital Signs Vital Signs: Last Vital Signs Temp 97.9 F 05/06/17 13:16 Pulse 77 05/06/17 13:16 Resp 16 05/06/17 13:16 BP 122/74 05/06/17 13:16 Pulse Ox 100 05/06/17 15:38 - Medical History PMH: Pulmonary Embolism (2013) Denies: HIV, Chronic Kidney Disease - Surgical History Surgical History: - Family History Family History: States: Hypertension - Social History Current smoker - smoking cessation education provided: No Alcohol: None Drugs: Denies - Home Medications Home Medications: Ambulatory Orders Medication Instructions Recorded Atorvastatin [Lipitor] 10 mg PO HS #30 tab 01/21/17 Clopidogrel [Plavix] 75 mg PO DAILY #30 tab 01/21/17 Losartan [Cozaar] 25 mg PO DAILY #30 tab 01/21/17 Promethazine DM [Phenergan DM 10 ml PO Q6 PRN #120 ml 05/06/17 Syrup] - Allergies Allergies/Adverse Reactions: Allergies Allergy/AdvReac Type Severity Reaction Status Date / Time No Known Allergies Allergy Verified 11/19/16 10:00 Review of Systems ROS Statement: Except As Marked, All Systems Reviewed And Found Negative Constitutional: Positive for: Chills, Malaise, Other (fatigue, body aches) ENT: Positive for: Nose Discharge, Throat Pain Respiratory: Positive for: Cough Gastrointestinal: Negative for: Vomiting, Diarrhea Physical Exam - Reviewed Nursing Documentation Reviewed: Yes Vital Signs Reviewed: Yes - Physical Exam Appears: Positive for: Non-toxic, No Acute Distress Head Exam: Positive for: ATRAUMATIC, NORMOCEPHALIC Skin: Positive for: Warm, Dry Eye Exam: Positive for: EOMI, PERRL ENT: Positive for: Tonsillar Swelling. Negative for: Pharyngeal Erythema, Tonsillar Exudate Neck: Positive for: Painless ROM, Supple Cardiovascular/Chest: Positive for: Regular Rate, Rhythm, Chest Non Tender. Negative for: Murmur Respiratory: Positive for: Normal Breath Sounds. Negative for: Accessory Muscle Use, Rales, Wheezing, Respiratory Distress Gastrointestinal/Abdominal: Positive for: Soft. Negative for: Tenderness Back: Positive for: Normal Inspection. Negative for: Decreased ROM Extremity: Positive for: Normal ROM. Negative for: Deformity Lymphatic: Negative for: Adenopathy (cervical) Neurologic/Psych: Positive for: Alert. Negative for: Motor/Sensory Deficits - ECG O2 Sat by Pulse Oximetry: 100 (RA) Pulse Ox Interpretation: Normal Medical Decision Making Medical Decision Making: Time: 13:36 Initial Impression: Viral syndrome. Differential diagnoses include, but are not limited to strep, influenza, bronchitis and pneumonia Initial Plan: --ED Urine --ED Urine dipstick --CXR --Throat culture --Influenza A B --Rapid strep group A CXR and labs unremarkable. DW pt findings and plan of care. Scribe Attestation: Documented by Veto Can, acting as a scribe for Ifrah Black MD. Provider Scribe Attestation: All medical record entries made by the Scribe were at my direction and personally dictated by me. I have reviewed the chart and agree that the record accurately reflects my personal performance of the history, physical exam, medical decision making, and the department course for this patient. I have also personally directed, reviewed, and agree with the discharge instructions and disposition. Disposition - Clinical Impression Clinical Impression: Viral illness - Disposition Referrals: Micah Dwyer MD [Family Provider] - (CALL YOUR DOCTOR TODAY TO SETUP FOLLOW UP APPOINTMENT IN 2-3 DAYS TO SEE HOW YOU ARE DOING.) Disposition: Routine/Home Disposition Time: 15:00 Condition: GOOD Additional Instructions: REST AND DRINK PLENTY OF HYDRATING FLUIDS TAKE MOTRIN OR TYLENOL FOR BODYACHES OR FEVER RETURN TO ER FOR WORSENING SYMPTOMS. OTHERWISE FOLLOW UP WITH DR DWYER BY THE END OF THE WEEK Prescriptions: Promethazine DM [Phenergan DM Syrup] 10 ml PO Q6 PRN #120 ml PRN Reason: severe cough Instructions: Viral Syndrome (ED) Forms: [facility] ED School/Work Excuse
--- NOTE | 2017-05-08 11:07 | RAD ---
HISTORY: Cough, fever. COMPARISON: 01/20/2017 TECHNIQUE: Chest PA and lateral FINDINGS: LUNGS: No active pulmonary disease. PLEURA: No significant pleural effusion identified. No pneumothorax apparent. CARDIOVASCULAR: Normal. OSSEOUS STRUCTURES: No significant abnormalities. VISUALIZED UPPER ABDOMEN: Normal. OTHER FINDINGS: None. IMPRESSION: No active disease. No significant interval change compared to the prior examination(s).
== END 2017-05-06 15:30 | disposition home or self-care (01) ==
LOC: H.ER 13:02
DX: B34.9 Viral infection, unspecified (principal)

== ENCOUNTER 2017-06-24 09:14 | Emergency (ER) | payer MEDICAID ==
[2017-06-24 09:14] VITALS: BMI 31.8
[2017-06-24 09:46] VITALS: BP 117/81; PULSE 90; RESP 19; TEMP 97; O2SAT 97
--- NOTE | 2017-06-24 10:23 | ED PDOC ---
HPI: CCC, URI, Sore Throat Chief Complaint (Nursing): Cough, Cold, Congestion Additional Complaint(s): 31yo F with PMHx TIA v carpal tunnel syndrome, bronchitis c/o cough. non productive cough x2 weeks, a/w head congestion, rhinorrhea, sore throat. Denies fever, chills, n/v, chest pain, SOB, abd pain, dysuria, hematuria. Tolerating PO PCP Dr. Gay Past Medical History Vital Signs: Last Vital Signs Temp 97 F L 06/24/17 09:44 Pulse 90 06/24/17 09:44 Resp 19 06/24/17 09:44 BP 117/81 06/24/17 09:44 Pulse Ox 97 06/24/17 10:28 - Medical History PMH: Bronchitis, Pulmonary Embolism (2013) Denies: HIV, Chronic Kidney Disease - Surgical History Surgical History: - Family History Family History: States: Unknown Family Hx, Hypertension - Social History Current smoker - smoking cessation education provided: No - Home Medications Home Medications: Ambulatory Orders Medication Instructions Recorded RX: Atorvastatin [Lipitor] 10 mg PO HS #30 tab 01/21/17 RX: Clopidogrel [Plavix] 75 mg PO DAILY #30 tab 01/21/17 RX: Losartan [Cozaar] 25 mg PO DAILY #30 tab 01/21/17 RX: Promethazine DM [Phenergan DM 10 ml PO Q6 PRN #120 ml 05/06/17 Syrup] - Allergies Allergies/Adverse Reactions: Allergies Allergy/AdvReac Type Severity Reaction Status Date / Time No Known Allergies Allergy Verified 11/19/16 10:00 Review of Systems ROS Statement: Except As Marked, All Systems Reviewed And Found Negative Respiratory: Positive for: Cough Physical Exam - Reviewed Nursing Documentation Reviewed: Yes Vital Signs Reviewed: Yes - Physical Exam Appears: Positive for: Well, Non-toxic Head Exam: Positive for: ATRAUMATIC, NORMAL INSPECTION Skin: Positive for: Warm, Dry Eye Exam: Positive for: Normal appearance. Negative for: Scleral icterus ENT: Positive for: TM Is/Are (WNL), Tonsillar Swelling (3+ b/l). Negative for: Pharyngeal Erythema, Tonsillar Exudate Neck: Positive for: Normal, Painless ROM, Supple Cardiovascular/Chest: Positive for: Regular Rate, Rhythm, Chest Non Tender Respiratory: Positive for: Normal Breath Sounds. Negative for: Decreased Breath Sounds, Crackles, Rales, Rhonchi Gastrointestinal/Abdominal: Positive for: Normal Exam, Bowel Sounds, Soft Back: Positive for: Normal Inspection. Negative for: Vertebral Tenderness Extremity: Positive for: Normal ROM Lymphatic: Negative for: Adenopathy Neurologic/Psych: Positive for: Alert, Oriented - ECG O2 Sat by Pulse Oximetry: 97 Medical Decision Making Medical Decision Makin DDx rhinosinusitis, tonsillitis, URI, strep, PNA unlikely rapid strep CXR reassessment 1200 ibuprofen 600mg PO x1 -rapid strep -CXR d/c home with abx Disposition - Clinical Impression Clinical Impression: Acute rhinosinusitis - Disposition Referrals: Micah Gay MD [Family Provider] - Disposition Time: 12:07 Condition: STABLE Instructions: Sinusitis, Adult (DC) Forms: [facility] ([place]), [facility] ED School/Work Excuse
--- NOTE | 2017-06-24 11:33 | RAD ---
HISTORY: cough COMPARISON: Chest radiograph dated 05/06/2017 TECHNIQUE: Chest PA and lateral FINDINGS: LUNGS: No active pulmonary disease. PLEURA: No significant pleural effusion identified. No pneumothorax apparent. CARDIOVASCULAR: Normal. OSSEOUS STRUCTURES: No significant abnormalities. VISUALIZED UPPER ABDOMEN: Normal. OTHER FINDINGS: None. IMPRESSION: No active disease.
== END 2017-06-24 13:26 | disposition home or self-care (01) ==
LOC: H.ER 09:14
DX: J01.90 Acute sinusitis, unspecified (principal); G56.00 Carpal tunnel syndrome, unspecified upper limb; Z86.711 Personal history of pulmonary embolism; Z86.73 Personal history of transient ischemic attack (TIA), and cerebral infarction without residual deficits

== ENCOUNTER 2018-06-08 00:08 | Emergency (ER) | payer MEDICAID ==
[2018-06-08 00:08] VITALS: BMI 31.8
[2018-06-08 01:15] VITALS: O2SAT 99
[2018-06-08] MEDS ORDERED: Tdap Vaccine 0.5 ml Vial (10-64 yrs) IM ONE ×2 (01:33→01:45)
--- NOTE | 2018-06-08 02:31 | ED PDOC ---
HPI: Headache Time Seen by Provider: 06/08/18 00:53 Chief Complaint (Nursing): Headache Chief Complaint (Provider): Headache History Per: Patient History/Exam Limitations: no limitations Additional Complaint(s): Patient states yesterday evening she went out drinking with her sister and had 4 alcoholic drinks and 2 shots. She does not remember what happened but her sister informed her that she tripped and fell. Patient is uncertain as to whether she lost consciousness, she is also uncertain as to how she fell. She reports that throughout the day she has had a headache. She states that she was about to sleep when she felt a lump on the back of her head and noticed dried blood prompting ED visit. She denies neck pain, extremity pain, abdominal pain, numbness, or tingling. Past Medical History Reviewed: Historical Data, Nursing Documentation, Vital Signs Vital Signs: Last Vital Signs Temp 98.4 F 06/08/18 01:08 Pulse 100 H 06/08/18 01:08 Resp 18 06/08/18 01:08 BP 129/82 06/08/18 01:08 Pulse Ox 99 06/08/18 01:08 - Medical History PMH: Bronchitis, Pulmonary Embolism (2013) Denies: HIV, Chronic Kidney Disease - Surgical History Surgical History: - Family History Family History: States: Unknown Family Hx, Hypertension - Home Medications Home Medications: Ambulatory Orders Medication Instructions Recorded Atorvastatin [Lipitor] 10 mg PO HS #30 tab 01/21/17 Clopidogrel [Plavix] 75 mg PO DAILY #30 tab 01/21/17 Losartan [Cozaar] 25 mg PO DAILY #30 tab 01/21/17 Promethazine DM [Phenergan DM 10 ml PO Q6 PRN #120 ml 05/06/17 Syrup] Amoxicillin/Clavulanate [Augmentin 1 tab PO BID 5 Days #10 tab 06/24/17 875 MG-125 MG] Ibuprofen [Motrin Tab] 600 mg PO Q8 PRN #15 tab 06/24/17 - Allergies Allergies/Adverse Reactions: Allergies Allergy/AdvReac Type Severity Reaction Status Date / Time No Known Allergies Allergy Verified 11/19/16 10:00 Review of Systems ROS Statement: Except As Marked, All Systems Reviewed And Found Negative Cardiovascular: Negative for: Chest Pain Gastrointestinal: Positive for: Nausea. Negative for: Abdominal Pain Musculoskeletal: Negative for: Neck Pain, Shoulder Pain, Arm Pain, Back Pain, Hand Pain, Leg Pain Neurological: Positive for: Headache Physical Exam - Reviewed Nursing Documentation Reviewed: Yes Vital Signs Reviewed: Yes - Physical Exam Appears: Positive for: Well, Non-toxic, No Acute Distress Head Exam: Negative for: ATRAUMATIC (mild tenderness and swelling without laceration on occiptal scalp; dry blood noted) Skin: Positive for: Normal Color, Warm, DRY Eye Exam: Positive for: EOMI, Normal appearance, PERRL ENT: Positive for: Normal ENT Inspection Neck: Positive for: Normal, Painless ROM Gastrointestinal/Abdominal: Positive for: Normal Exam, Soft. Negative for: Tenderness Neurological/Psych: Positive for: Awake, Alert, Normal Tone, Oriented (x3). Negative for: Motor/Sensory Deficits - ECG O2 Sat by Pulse Oximetry: 99 (RA) Pulse Ox Interpretation: Normal - Progress Re-evaluation Time: 04:09 (Repeat neuro exam is non-focal. Informed of results. ) Condition: Re-examined, Improved Medical Decision Making Medical Decision Making: Time: 01:34 Impression: Headache Initial plan: * CT C Spine * CT Head * Tetanus * Tylenol 975 mg 03:27 CT Head Normal size of the ventricles and extra-axial spaces for the patient's age. Normal white matter tracts of the supratentorial brain. Normal basal ganglia and thalami. Normal brainstem. Normal cerebellum. There is no demonstrated extra-axial, intraparenchymal, or intraventricular hemorrhage. There are no findings of an acute ischemic infarction. Normal calvarium. There is no demonstrated fracture. Normal soft tissue structures. Mild chronic mucosal inflammatory changes of the ethmoid air cells. Storm cisterna magna. Chronic benign incidental finding. Normal brain visualized paranasal sinuses. IMPRESSION: No CT evidence of acute pathology. 03:31 CT C Spine Findings: Normal craniovertebral junction. Normal anterior atlantoaxial articulation. Normal odontoid process. Normal cervical lordosis. Normal vertebral bodies and posterior osseous elements. C2-3: Normal endplates. Normal disc height and morphology. Normal bilateral uncovertebral and apophyseal joints. Normal central canal and intervertebral neuroforamina. C3-4: Normal endplates. Normal disc height and morphology. Normal bilateral uncovertebral and apophyseal joints. Normal central canal and intervertebral neuroforamina. C4-5: Normal endplates. Normal disc height and morphology. Normal bilateral uncovertebral and apophyseal joints. Normal central canal and intervertebral neuroforamina. C5-6: Normal endplates. Normal disc height and morphology. Normal bilateral uncovertebral and apophyseal joints. Normal central canal and intervertebral neuroforamina. C6-7: Normal endplates. Normal disc height and morphology. Normal bilateral uncovertebral and apophyseal joints. Normal central canal and intervertebral neuroforamina. C7-T1: Normal endplates. Normal disc height and morphology. Normal bilateral uncovertebral and apophyseal joints. Normal central canal and intervertebral neuroforamina. Normal visualized soft tissue structures. IMPRESSION: Normal unenhanced CT examination of the cervical spine. On re-evaluation, pt. AOx3. Headache has improved. Informed of results. Advised to f/u with PMD for further evaluation. Scribe Attestation: Documented by Gary Arenas, acting as a scribe for Juancarlos Lowry PA-C Provider Scribe Attestation: All medical record entries made by the Scribe were at my direction and personally dictated by me. I have reviewed the chart and agree that the record accurately reflects my personal performance of the history, physical exam, medical decision making, and the department course for this patient. I have also personally directed, reviewed, and agree with the discharge instructions and disposition. Disposition - Clinical Impression Clinical Impression: Head injury - Patient ED Disposition Is Patient to be Admitted: No - Disposition Referrals: [facility] [Outside] Disposition: Routine/Home Disposition Time: 04:11 Condition: IMPROVED Additional Instructions: FOLLOW UP WITH YOUR DOCTOR FOR FURTHER EVALUATION RETURN TO ED IMMEDIATELY IF SYMPTOMS WORSEN ALEXANDER ALCALA, thank you for letting us take care of you today. Your provider was Albert Guzman MD and you were treated for MEDICAL CLEARANCE. The emergency medical care you received today was directed at your acute symptoms. If you were prescribed any medication, please fill it and take as directed. It may take several days for your symptoms to resolve. Return to the Emergency Department if your symptoms worsen, do not improve, or if you have any other problems. Please contact your doctor or call one of the physicians/clinics you have been referred to that are listed on the Patient Visit Information form that is included in your discharge packet. Bring any paperwork you were given at discharge with you along with any medications you are taking to your follow up visit. Our treatment cannot replace ongoing medical care by a primary care provider outside of the emergency department. Thank you for allowing the [facility] team to be part of your care today. If you had an X-Ray or CT scan: A Radiologist will review the ED reading if any change in treatment is needed we will contact you. If you had a blood, urine, or wound culture: It will take several days for the results, if any change in treatment is needed we will contact you. If you had an STI test: It will take 48 hours for the results. Please call after 1 week if you have not heard back. Instructions: Head Injury Observation (DC) Forms: [employer] ([place])
[2018-06-08 04:42] VITALS: BP 101/58; PULSE 77; RESP 16; TEMP 97
--- NOTE | 2018-06-08 09:55 | CT ---
Date of service: 06/08/2018 PROCEDURE: CT Cervical Spine without contrast HISTORY: trauma COMPARISON: Cervical spine MRI 01/21/2017. TECHNIQUE: Axial computed tomography images were obtained of the cervical spine without the use of intravenous contrast. Coronal and sagittal reformatted images were created and reviewed. Radiation dose: Total exam DLP = 375.11 mGy-cm. This CT exam was performed using one or more of the following dose reduction techniques: Automated exposure control, adjustment of the mA and/or kV according to patient size, and/or use of iterative reconstruction technique. FINDINGS: VERTEBRAE: There is a mild reversal of cervical curvature without fracture or spondylolisthesis identified in the interval. No destructive bony lesion is appreciable. Vertebral body heights are normal. Disc interspace heights appear grossly within normal limits and unchanged as well. C1-2 articulation is stable and unremarkable. Craniocervical junction is intact. DISCS/SPINAL CANAL/NEURAL FORAMINA: No significant central canal or neural foraminal stenosis. Discs heights are grossly preserved. PARASPINAL SOFT TISSUES: Unremarkable. OTHER FINDINGS: None. IMPRESSION: Interval reversal of cervical curvature without fracture or spondylolisthesis appreciable. No gross disc herniation identified throughout. No spinal stenosis appreciable. Neural foramina widely patent. Prior C4-5 central disc protrusion not clearly identified currently. This can be better evaluated by MRI as clinically indicated. Preliminary report provided by Caroline, 06/08/2018, 3:31 a.m..
--- NOTE | 2018-06-08 09:58 | CT ---
Date of service: 06/08/2018 PROCEDURE: CT HEAD WITHOUT CONTRAST. HISTORY: trauma COMPARISON: Unenhanced head CT 01/20/2017. TECHNIQUE: Axial computed tomography images were obtained through the head/brain without intravenous contrast. Radiation dose: Total exam DLP = 829.87 mGy-cm. This CT exam was performed using one or more of the following dose reduction techniques: Automated exposure control, adjustment of the mA and/or kV according to patient size, and/or use of iterative reconstruction technique. FINDINGS: HEMORRHAGE: No intracranial hemorrhage. BRAIN: Stable 4.4 x 2.6 cm arachnoid cyst at the superior to mid midline posterior fossa impressing the mid and superior midline cerebellum once again. Remainder the exam is negative with normal corticomedullary differentiation appreciated otherwise. No parenchymal edema or other extra-axial finding. Brainstem remains normal. VENTRICLES: Unremarkable. No hydrocephalus. CALVARIUM: No destructive bony lesion or displaced fracture identified including through the skullbase. PARANASAL SINUSES: Unremarkable as visualized. No significant inflammatory changes. MASTOID AIR CELLS: Unremarkable as visualized. No inflammatory changes. OTHER FINDINGS: None. IMPRESSION: Stable unenhanced head CT with no posttraumatic sequelae appreciated. Small arachnoid cyst again noted superior to mid posterior fossa midline.
== END 2018-06-08 04:25 | disposition home or self-care (01) ==
LOC: H.ER 00:08
DX: S09.90XA Unspecified injury of head, initial encounter (principal); Z86.711 Personal history of pulmonary embolism; W01.0XXA Fall on same level from slipping, tripping and stumbling without subsequent striking against object, initial encounter; Z23 Encounter for immunization